=== PATIENT | female | born 1965 | race African-American/Black ===

== ENCOUNTER 2016-06-22 17:53 | Emergency (ER) | payer BC ==
--- NOTE | ~2016-06-22 | EKG ---
PATIENT: NOMI CRUZ UNIT #: [id number] Ventricular Rate: 75 BPM Atrial Rate: 75 BPM P-R Interval: 152 ms QRS Duration: 90 ms Q-T Interval: 388 ms QTC Calculation(Bezet): 433 ms P Hallett: 56 degrees Calculated R Hallett: 52 degrees Calculated T Hallett: 45 degrees Diagnosis Line: Normal sinus rhythm Diagnosis Line: Minimal voltage criteria for LVH, may be normal Diagnosis Line: variant Diagnosis Line: Borderline ECG Diagnosis Line: No previous ECGs available Diagnosis Line: Confirmed by LEONARDO METZ MD ([id number]) on Diagnosis Line: 06/25/2016 12:22:04 PM INTERPRETING MD: ALBERT
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
[2016-06-22 17:48] LABS: BASOPHIL# 0.1 X10e3 (0.0-0.3); BASOPHIL% 2.2 % (0.0-2.5); EOSINOPHIL# 0.1 X10e3 (0.0-0.7); EOSINOPHIL% 2.3 % (0.0-7.0); HEMATOCRIT 38.1 % (35.0-45.0); HEMOGLOBIN 13.2 gm/dl (12.0-16.0); LYMPHOCYTE# 2.3 X10e3 (1.0-3.5); LYMPHOCYTE% 35.7 % (17.0-45.0); MEAN CORPUSCULAR HEMOGLOBIN 31.2 PG (28-34); MEAN CORPUSCULAR HGB CONC 34.7 g/dL (30-36); MEAN PLATELET VOLUME 7.4 FL (6.5-11.5); MONOCYTE# 0.4 X10e3 (0.0-1.0); MONOCYTE% 6.4 % (3.0-12.0); NEUTROPHIL# 3.5 X10e3 (1.5-7.1); NEUTROPHIL% 53.4 % (40.0-75.0); PLATELET COUNT 171 X10e3 (140-420); RED BLOOD COUNT 4.23 X10e6 (3.90-5.30); RED CELL DISTRIBUTION WIDTH 12.1 % (11.0-15.5); WHITE BLOOD COUNT 6.4 X10e3 (4.0-10.5)
[~2016-06-22 17:53] MED LIST: ASPIRIN81 M1 PO; COREG6.25 MG PO; DYRENIUM50 MG; FIBERCON; IMITREX; IMITREX PO; NITROQUICK0.4 MG; NORVASC; OMEPRAZOLE40 MG PO; OXYCODONE HCL10 M1 PO; SEROQUEL PO; STADOL NS25 MG MC; ZOLOFT100 MG PO; ZONEGRAN100 MG PO
[2016-06-22 17:56] LABS: DIFF IND NO
[2016-06-22 18:03] LABS: POC - CKMB 1.4 ng/mL (0.0-7.9); POC - MYOGLOBIN 99.7 ng/mL (0.0-169.0)
[2016-06-22 18:04] LABS: POC - TROPONIN <0.05 ng/mL (<=0.05)
[2016-06-22 18:10] LABS: ALBUMIN SERUM 4.9 g/dL (3.5-5.0); ALKALINE PHOSPHATASE 71 U/L (32-92); ALT (SGPT) 16 U/L (10-40); AST (SGOT) 20 U/L (10-42); BILIRUBIN, DIRECT 0.1 mg/dL (0.0-0.2); BILIRUBIN,INDIRECT 0.4 mg/dL (0.0-0.9); BILIRUBIN,TOTAL 0.5 mg/dL (0.2-2.0); BLOOD UREA NITROGEN 15 mg/dL (9-23); BUN/CREATININE RATIO 21.42; CALCIUM SERUM 9.2 mg/dL (8.4-10.2); CARBON DIOXIDE 29 mmol/L (22-31); CHLORIDE 103 mmol/L (100-111); CREATININE SERUM 0.7 mg/dL (0.6-1.4); GLOM FILT RATE Estimated ABOVE60 mL/min (>60); GLUCOSE FASTING 89 mg/dL (70-110); POTASSIUM 3.6 mmol/L (3.5-5.1); PROTEIN TOTAL SERUM 7.5 g/dL (6.0-8.3); SODIUM 140 mmol/L (135-145)
== END 2016-06-22 19:17 | disposition home or self-care (01) ==
LOC: SED 17:53
PROVIDERS: Physician Assistant Medical
DX: S16.1XXA Strain of muscle, fascia and tendon at neck level, initial encounter (principal); S80.12XA Contusion of left lower leg, initial encounter; S80.11XA Contusion of right lower leg, initial encounter; I10 Essential (primary) hypertension; G43.909 Migraine, unspecified, not intractable, without status migrainosus; Y08.89XA Assault by other specified means, initial encounter; Y92.009 Unspecified place in unspecified non-institutional (private) residence as the place of occurrence of the external cause
CPT/HCPCS: 71020; 72040; 80048; 80076; 82553; 83874; 84484; 85025; 93005; 96374; 96375; 99284; J1885; J2360